=== PATIENT | male | born 1960 | race Two or more races ===

== ENCOUNTER → 2024-10-12 | Emergency (ER) | payer OTHER ==
[~2024-10-12] VITALS: Ht 172.7 cm; Wt 74.8 kg
[2024-10-12 19:56] VITALS: BP 137/87; O2SAT 99
== END | disposition left against medical advice (07) ==
LOC: ER 19:19
DX: Z53.21 Procedure and treatment not carried out due to patient leaving prior to being seen by health care provider (principal)